=== PATIENT | male | born 1960 | race African-American/Black ===

== ENCOUNTER 2018-04-12 05:45 | Emergency (ER) | payer OTHER ==
[~2018-04-12] VITALS: Ht 175.3 cm; Wt 81.2 kg
--- NOTE | 2018-04-12 06:13 | EKG ---
[facility] [address] [place] [address] Test Date: 2018-04-12 Test Time: 05:49:27 Pat Name: MARBIN DUBOIS Department: Room: Gender: M Pilot: : 1960 Requested By: NICOLAS MARTINEZ Order Number: [id number] Reading MD: Valeriano Bennett MD Measurements Intervals [place] Rate: 73 P: 46 FL: 174 QRS: 19 QRSD: 78 T: 28 QT: 354 QTc: 393 Interpretive Statements SINUS RHYTHM Electronically Signed On 04-13-2018 13:46:23 CDT by Valeriano Bennett MD
[2018-04-12 06:21] LABS: CALCIUM 8.7 mg/dL (8.5-10.1); GFR 77.3; POTASSIUM 4.1 mmol/L (3.5-5.1)
--- NOTE | 2018-04-12 06:41 | PHYS DOC ---
Past Medical History Past Medical History: Anemia Past Surgical History: No Surgical History Alcohol Use: None Drug Use: None Adult General Chief Complaint Chief Complaint: CHEST PAIN HPI HPI This is a very pleasant 58-year-old male otherwise healthy outside of having anemia presenting to the emergency department today with a sharp pain in the left chest that is worse with breathing and movement. It radiates to the left shoulder, intermittent and not present at rest. He denies diabetes, hypertension. He reports a one pack year smoking history back in 1985 otherwise does not smoke regularly. He reports that his mother had a heart attack at age 76. He reports many years ago he had high cholesterol which was identified early and improved with diet and exercise. He no longer has high cholesterol. He denies unilateral leg swelling hemoptysis personal history of blood clotting disorders recent immobilization or surgery. Review of systems is negative for abdominal pain vomiting diaphoresis. He denies nausea. He denies fevers or chills. All other review of systems is negative unless otherwise noted in history of present illness. ED course: 58-year-old male presenting the emergency department with atypical chest pain. EKG reviewed by myself shows sinus rhythm with a regular rate. ST segments congruent. Not suggestive of ACS. Chest x-ray obtained along with blood work. Troponin is negative here. Patient will be given aspirin and morphine. Troponin negative 2 by 3 hours. Repeat EKG reviewed by myself continues to be reassuring. No acute evolving changes. Not suggestive of acute coronary syndrome. Dimer is within normal limits. Mild baseline anemia. Otherwise the patient is feeling better. 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 The patient has been examined and was not found to have an emergency medical condition. The patient was then discharged home in stable condition. They were to return if their symptoms worsened or if they were concerned for any reason. They were also instructed to return to the emergency department if they were unable to get the recommended and appropriate follow-up. [id number] discharge instructions and return precautions were given. Patient's questions were answered to their satisfaction. Patient is comfortable with plan. Review of Systems Review of Systems SEE ABOVE. Current Medications Current Medications Current Medications Medications (Trade) Dose Ordered Sig/Zion Start Time Stop Time Status Last Admin Dose Admin Aspirin (Children'S Aspirin) 324 mg 1X ONCE 04/12/18 06:45 04/12/18 06:46 DC 04/12/18 06:46 324 MG Morphine Sulfate (Morphine Sulfate) 2 mg PRN Q1HR PRN 04/12/18 06:45 04/12/18 06:47 2 MG Allergies Allergies Allergies Coded Allergies Type Severity Reaction Last Updated Verified No Known Drug Allergies 04/12/18 No Physical Exam Physical Exam SEE ABOVE Constitutional: Well developed, well nourished, no acute distress, non-toxic appearance. [] HENT: Normocephalic, atraumatic, bilateral external ears normal, oropharynx moist, no oral exudates, nose normal. [] Eyes: PERRLA, EOMI, conjunctiva normal, no discharge. [] Neck: Normal range of motion, no tenderness, supple, no stridor. [] Cardiovascular:Heart rate regular rhythm, no murmur [] Lungs & Thorax: Bilateral breath sounds clear to auscultation [] Abdomen: Bowel sounds normal, soft, no tenderness, no masses, no pulsatile masses. [] Skin: Warm, dry, no erythema, no rash. [] Back: No tenderness, no CVA tenderness. [] Extremities: No tenderness, no cyanosis, no clubbing, ROM intact, no edema. [] Neurologic: Alert and oriented X 3, normal motor function, normal sensory function, no focal deficits noted. [] Psychologic: Affect normal, judgement normal, mood normal. [] Current Patient Data Vital Signs Vital Signs Date Time Temp Pulse Resp B/P (MAP) Pulse Ox O2 Delivery O2 Flow Rate FiO2 04/12/18 07:48 64 13 132/88 (103) 99 Room Air 04/12/18 06:04 98.1 98.1 Lab Values Laboratory Tests Test 04/12/18 06:00 04/12/18 06:01 04/12/18 08:43 White Blood Count 6.4 x10^3/uL (4.0-11.0) Red Blood Count 3.94 x10^6/uL (4.30-5.70) L Hemoglobin 12.9 g/dL (13.0-17.5) L Hematocrit 37.4 % (39.0-53.0) L Mean Corpuscular Volume 95 fL (79-100) Mean Corpuscular Hemoglobin 33 pg (25-35) Mean Corpuscular Hemoglobin Concent 35 g/dL (31-37) Red Cell Distribution Width 14.0 % (11.5-14.5) Platelet Count 356 x10^3/uL (140-400) Neutrophils (%) (Auto) 50 % (31-73) Lymphocytes (%) (Auto) 38 % (24-48) Monocytes (%) (Auto) 10 % (0-9) H Eosinophils (%) (Auto) 2 % (0-3) Basophils (%) (Auto) 1 % (0-3) Neutrophils # (Auto) 3.2 x10^3uL (1.8-7.7) Lymphocytes # (Auto) 2.4 x10^3/uL (1.0-4.8) Monocytes # (Auto) 0.6 x10^3/uL (0.0-1.1) Eosinophils # (Auto) 0.1 x10^3/uL (0.0-0.7) Basophils # (Auto) 0.0 x10^3/uL (0.0-0.2) D-Dimer (Zee) < 0.27 ug/mlFEU Sodium Level 148 mmol/L (136-145) H Potassium Level 4.1 mmol/L (3.5-5.1) Chloride Level 109 mmol/L (98-107) H Carbon Dioxide Level 28 mmol/L (21-32) Anion Gap 11 (6-14) Blood Urea Nitrogen 11 mg/dL (8-26) Creatinine 1.0 mg/dL (0.7-1.3) Estimated GFR (Cockcroft-Gault) 77.3 Glucose Level 119 mg/dL (70-99) H Calcium Level 8.7 mg/dL (8.5-10.1) Troponin I Quantitative < 0.017 ng/mL (0.000-0.055) < 0.017 ng/mL (0.000-0.055) Lipase 263 U/L (73-393) POC Troponin I 0.00 ng/ml (<0.08) Laboratory Tests 04/12/18 06:00 Laboratory Tests 04/12/18 06:00 EKG EKG [] Radiology/Procedures Radiology/Procedures [] Course & Med Decision Making Course & Med Decision Making Pertinent Labs and Imaging studies reviewed. (See chart for details) [] Dragon Disclaimer Dragon Disclaimer This electronic medical record was generated, in whole or in part, using a voice recognition dictation system. Departure Departure Impression: Primary Impression: Chest pain Disposition: HOME, SELF-CARE Condition: STABLE Referrals: AMBERLY PATRICIA MD follow up in 1-2 days Patient Instructions: Chest Pain (Nonspecific) Additional Instructions: Thank you for allowing us to participate in your care today. Return to the emergency department you have any new or worsening symptoms, or if you are concerned for any reason. Return to emergency department if you have any new or concerning symptoms including but not limited to fever, chills, nausea, vomiting, intractable pain, any new rashes, chest pain, shortness of air , uncontrolled bleeding, difficulty breathing, and/or vision loss. Follow up with Dr. Patricia in clinic today or tomorrow. Follow-up with primary care physician within 2-3 days. Call your Primary Doctor tomorrow and inform them of your visit today. If you do not have a primary care provider we are happy to provide you with a list of our primary care providers contact information. This condition should be evaluated by your primary care physician and any recommended consulting services for continued management within 2-3 days after discharge. If at any time, you are having difficulty getting into your primary care doctor or a specialist, return to the emergency department. Scripts Aspirin (ASPIRIN) 81 Mg Tab.chew 1 TAB PO DAILY, #10 TAB 0 Refills Prov: BILL CUELLAR MD 04/12/18 BILL CUELLAR MD Apr 12, 2018 06:41
[2018-04-12] MEDS: ASPIRIN CHEWABLE 81 MG TABLET. PO ONE (06:46)
[2018-04-12] MEDS: MORPHINE SULFATE 2 MG/ML VIAL. IV PRN (06:47)
[2018-04-12 06:58] LABS: BASO % 1 % (0-3); EOS # 0.1 x10^3/uL (0.0-0.7); EOS % 2 % (0-3); HEMATOCRIT 37.4 % (39.0-53.0); HEMOGLOBIN 12.9 g/dL (13.0-17.5); LYMPH # 2.4 x10^3/uL (1.0-4.8); LYMPH % 38 % (24-48); MEAN CORPUSCULAR HEMOGLOBIN 33 pg (25-35); MEAN CORPUSCULAR HGB CONC 35 g/dL (31-37); MEAN CORPUSCULAR VOLUME 95 fL (79-100); MONO # 0.6 x10^3/uL (0.0-1.1); MONO % 10 % (0-9); NEUT # 3.2 x10^3uL (1.8-7.7); NEUT % 50 % (31-73); PLATELET COUNT 356 x10^3/uL (140-400); RED BLOOD COUNT 3.94 x10^6/uL (4.30-5.70); WHITE BLOOD COUNT 6.4 x10^3/uL (4.0-11.0)
--- NOTE | 2018-04-12 07:45 | RAD ---
Portable chest, 04/12/2018: HISTORY: Chest pain The heart size and pulmonary vascularity are normal. No pulmonary infiltrate is seen. There is no evidence of pleural fluid. IMPRESSION: No acute cardiopulmonary abnormality is detected. Electronically signed by: Dash Rebolledo MD (04/12/2018 7:41 AM) [facility]
[2018-04-12 09:18] VITALS: BP 149/86
[2018-04-12] MEDS ORDERED: ASPI-630 PO (09:34)
--- NOTE | 2018-04-12 13:24 | EKG ---
[facility] [address] [place] [address] Test Date: 2018-04-12 Test Time: 09:18:43 Pat Name: MARBIN DUBOIS Department: Room: Gender: M Crew Leader/Control Room Operator: : 1960 Requested By: BILL CUELLAR Order Number: [id number] Reading MD: Valeriano Bennett MD Measurements Intervals [place] Rate: 63 P: 0 NE: 186 QRS: 25 QRSD: 78 T: 23 QT: 380 QTc: 392 Interpretive Statements SINUS RHYTHM Electronically Signed On 04-13-2018 13:46:27 CDT by Valeriano Bennett MD
== END 2018-04-12 09:38 | disposition home or self-care (01) ==
LOC: ER 05:45
DX: R07.89 Other chest pain (principal); M25.512 Pain in left shoulder; Z86.2 Personal history of diseases of the blood and blood-forming organs and certain disorders involving the immune mechanism
CPT/HCPCS: 36415; 71045; 80048; 83690; 84484; 85025; 85379; 93005; 96374; 99285; J2270

== ENCOUNTER → 2018-05-14 | Outpatient (CLI) | payer OTHER ==
[~2018-05-14] MED LIST: ASPI-630 PO
--- NOTE | 2018-05-14 14:42 | CARD ---
MR#: [id number] Date of Study: 05/14/2018 Ordering Physician: AMBERLY CANELA, Referring Physician: AMBERLY CANELA, Tech: Sherry Chiang RDCS APPROVED REPORT INDICATION Chest Pain Reason : Patient complained of pain PROCEDURE The patient underwent an Exercise Stress Test using the Jt Protocol. Blood pressure, heart rate, a nd EKG were monitored. An Echocardiogram was performed by construction equipment technician in four stages in quad fashion. At peak stress four se lected images were obtained and placed side by side with resting images for comparison. STRESS ECHO FINDINGS The resting Echocardiogram showed normal left ventricular systolic contractility with an estimated Ej ection Fraction of about 60 %. The Resting Echocardiogram showed normal augmentation of myocardial wall segments using a 16 segment model. The Stress Echocardiogram showed normal augmentation of myocardial wall segments using a 16 segment m niall. The Stress Echocardiogram left ventricular systolic contractility has an estimated Ejection Fraction of about 70%. Test Type: Exercise Stress Nurse/Tech: Karina Greer RN Test Indications: Chest Pain Cardiac History and Allergies: See MyFit EMR NKDA Medications: See EMR Medical History: See EMR Resting ECG: SR Resting Heart Rate: 76 bpm Resting Blood Pressure: 113/60mmHg Pretest Chest Pain: No chest pain Nurse/Tech Notes S1,S2 and lungs are clear to auscultation. Stress Symptoms Fatigue POST EXERCISE Reason for Termination: Reached target heart rate, Fatigue Target HR: Yes Max HR: 168 bpm 102% of Maximum Predicted HR: 164 bpm Exercise duration: 11:01 min:sec, 4 Stage Exercise capacity: 12.8METs Max Blood Pressure: 154/54mmHg Blood Pressure response to exercise: Normal blood pressure response during stress. Heart Rate response to exercise: WNL Chest Pain: No. Arrhythmia: No. ST Change: Yes. ST elevation in leads II,III,aVF,and v3-v6 which returned to baseline by the end of t he study STRESS ECG Stress EKG shows no significant changes. Preliminary Notification Critical Value: No <Conclusion> The left ventricle is normal in size and wall thickness in both the rest and stress images. Normal EF at rest and with peak stress. Images obtained at less than 85% of APMHR, decreasing specificity of the test. Grossly, excellent fun ctional capacity with 12.8 Mets achieved. Low risk study. Signed by : Valeriano Bennett, Electronically Approved : 05/14/2018 14:41:51
== END | disposition home or self-care (01) ==
LOC: ECHO 12:35
PROVIDERS: ATTEND Internal Medicine Cardiovascular Disease
DX: R07.9 Chest pain, unspecified (principal); R53.83 Other fatigue
CPT/HCPCS: 93017; 93350